=== PATIENT | female | born 1935 | race Caucasian/White ===

== ENCOUNTER 2017-10-11 09:26 | Inpatient (IN) | payer MEDICARE, MEDICAID ==
[~2017-10-11] VITALS: Ht 152.4 cm; Wt 70.8 kg
[~2017-10-11 09:26] MED LIST: AMLO2.5T45 PO; Aspirin PO; FURO-151 PO; LOSA50TA3 PO
[2017-10-11] MEDS ORDERED: ASPIRIN 81MG TABLET PO ONE (11:45)
[2017-10-11] MEDS ORDERED: IPRATROPIUM/ALBUTEROL 0.5-3(2.5)MG/3ML NEB HHN ONE (11:45)
[2017-10-11 12:11] LABS: BASOPHILS % 1.1 % (0.0-2.0); EOSINOPHILS % 2.9 % (0.0-5.0); HEMATOCRIT. 34.2 % (36.0-48.0); HEMOGLOBIN. 11.8 g/dL (12.0-16.0); LYMPHOCYTES % 25.2 % (20.0-50.0); MEAN CORPUSCULAR HEMOGLOBIN 30.6 pg (28.0-32.0); MEAN CORPUSCULAR VOLUME 88.8 fL (81.0-99.0); NEUTROPHILS % 60.8 % (40.0-76.0); PLATELET 199 x1000/uL (130-400); RED BLOOD CELL COUNT 3.85 mill/uL (4.2-5.4); RED CELL DISTRIBUTION WIDTH 14.9 % (11.6-14.6)
[2017-10-11 12:18] LABS: INR 1.1; PROTHROMBIN TIME 11.4 sec (9.4-11.6)
[2017-10-11 12:21] LABS: CHLORIDE 105 mEq/L (98-107)
[2017-10-11 14:24] LABS: CLARITY URINE CLEAR (CLEAR); COLOR URINE YELLOW (YELLOW); KETONES URINE NEGATIVE (NEGATIVE); LEUKOCYTE ESTERASE URINE 2+ (NEGATIVE); NITRITE URINE POSITIVE (NEGATIVE); OCCULT BLOOD URINE NEGATIVE (NEGATIVE); PH URINE 8.5 (4.5-8.0); PROTEIN URINE NEGATIVE (NEGATIVE); SPECIFIC GRAVITY URINE 1.012 (1.005-1.030); UROBILINOGEN URINE 0.2 E.U./dL (0.2-1.0)
[2017-10-11 14:44] LABS: *AMPHETAMINES SCREEN URINE NEGATIVE (NEGATIVE); *BARBITURATES SCREEN URINE NEGATIVE (NEGATIVE); *BENZODIAZEPINES SCREEN URINE NEGATIVE (NEGATIVE); *COCAINE SCREEN URINE NEGATIVE (NEGATIVE); CANNABINOID URINE SCREEN NEGATIVE (NEGATIVE); METHADONE URINE SCREEN NEGATIVE (NEGATIVE); OPIATES URINE SCREEN NEGATIVE (NEGATIVE); PHENCYCLIDINE URINE SCREEN NEGATIVE (NEGATIVE)
[2017-10-11 17:40] VITALS: BP 111/72
[2017-10-11] MEDS ORDERED: ISOS30TA6 PO (17:55)
[2017-10-11] MEDS ORDERED: ALBU90AE IH (17:55)
[2017-10-11] MEDS ORDERED: ATOR20TA65 PO (17:56)
[2017-10-11] MEDS ORDERED: MECL-109 PO (17:57)
[2017-10-11 18:05] VITALS: BP 111/72
[2017-10-11] MEDS ORDERED: LORAZEPAM 2MG/ML CPJ IV PRN (18:45)
[2017-10-11] MEDS ORDERED: GUAIFENESIN 200MG/10ML SUGAR FREE UDC PO PRN (18:45)
[2017-10-11] MEDS ORDERED: CLONIDINE 0.1MG TABLET PO PRN (18:45)
[2017-10-11] MEDS ORDERED: NA PHOS,M-B/NA PHOS,DI-BA ENEMA 118ML PR PRN (18:45)
[2017-10-11] MEDS ORDERED: IPRATROPIUM/ALBUTEROL 0.5-3(2.5)MG/3ML NEB INH PRN (18:45)
[2017-10-11] MEDS ORDERED: MORPHINE SULFATE 4 MG/ML CPJ (NOT FOR IM USE) IV PRN (18:45)
[2017-10-11] MEDS ORDERED: HYDROCODONE/ACETAMINOPHEN 5/325MG TABLET PO PRN (18:45)
[2017-10-11] MEDS ORDERED: DOCUSATE SODIUM 100MG CAPSULE PO PRN (18:45)
[2017-10-11] MEDS ORDERED: MAGNESIUM/ALUMINUM HYDROXIDE/SIMETHICONE 30ML UDC PO PRN (18:45)
[2017-10-11] MEDS ORDERED: ACETAMINOPHEN 325MG TABLET PO PRN (18:45)
[2017-10-11] MEDS ORDERED: DIPHENHYDRAMINE 50MG/ML VIAL IV PRN (18:45)
[2017-10-11] MEDS ORDERED: ONDANSETRON HCL 4MG/2ML VIAL IV PRN (18:45)
[2017-10-11] MEDS: ISOSORBIDE MONONITRATE 30MG TABLET SR 24HR PO SCH (19:50)
[2017-10-11] MEDS: AMLODIPINE 2.5MG TABLET PO SCH (19:50)
[2017-10-11] MEDS: LOSARTAN POTASSIUM 50 MG TABLET PO SCH (19:51)
[2017-10-11] MEDS: ENOXAPARIN 40MG/0.4ML SYR SUBCUT SCH (19:52)
[2017-10-11] MEDS: ATORVASTATIN CALCIUM 20MG TABLET PO SCH (19:55)
[2017-10-11 20:00] VITALS: BP 216/57
[2017-10-11 20:21] LABS: CHLORIDE 104 mEq/L (98-107)
[2017-10-11 22:50] VITALS: BP 192/85
[2017-10-12] VITALS: BP 148/65
[2017-10-12 04:00] VITALS: BP 137/63
[2017-10-12 06:01] LABS: BASOPHILS % 1.1 % (0.0-2.0); EOSINOPHILS % 3.4 % (0.0-5.0); HEMATOCRIT. 33.6 % (36.0-48.0); HEMOGLOBIN. 11.2 g/dL (12.0-16.0); LYMPHOCYTES % 33.7 % (20.0-50.0); MEAN CORPUSCULAR HEMOGLOBIN 29.8 pg (28.0-32.0); MEAN CORPUSCULAR VOLUME 89.4 fL (81.0-99.0); MEAN PLATELET VOLUME 9.6 fl (7.4-10.4); NEUTROPHILS % 50.8 % (40.0-76.0); PLATELET 208 x1000/uL (130-400); RED BLOOD CELL COUNT 3.76 mill/uL (4.2-5.4)
[2017-10-12 08:00] VITALS: BP 147/55
[2017-10-12 08:16] LABS: CHLORIDE 107 mEq/L (98-107)
[2017-10-12 08:31] LABS: HDL CHOLESTEROL 46 mg/dL (40-59); LDL CHOLESTEROL 92 mg/dL (5-100)
[2017-10-12] MEDS: FUROSEMIDE 40MG/4ML VIAL IV SCH (09:17)
[2017-10-12] MEDS: AMLODIPINE 2.5MG TABLET PO SCH (09:17)
[2017-10-12] MEDS: LOSARTAN POTASSIUM 50 MG TABLET PO SCH (09:18)
[2017-10-12] MEDS: ISOSORBIDE MONONITRATE 30MG TABLET SR 24HR PO SCH (09:18)
[2017-10-12] MEDS: ASPIRIN 81MG EC TABLET PO SCH ×2 (09:18→13:39)
[2017-10-12] MEDS: ASPIRIN 81MG TABLET PO SCH (11:30)
[2017-10-12] MEDS ORDERED: REGADENOSON 0.4 MG/5 ML IV SCH (11:30)
[2017-10-12 12:00] VITALS: BP 139/49
[2017-10-12 16:00] VITALS: BP 122/50
[2017-10-12 16:32] LABS: T4 FREE 1.03 ng/dL (0.76-1.46)
[2017-10-12 16:33] LABS: CREATINE KINASE 57 IU/L (26-192); CREATINE KINASE MB FRACTION 0.8 ng/mL (0.5-3.6)
[2017-10-12] MEDS ORDERED: LEVOFLOXACIN 750MG PREMIX 150 ML IV SCH (17:00)
[2017-10-12 20:00] VITALS: BP 143/46
[2017-10-12] MEDS: ATORVASTATIN CALCIUM 20MG TABLET PO SCH (21:11)
[2017-10-12] MEDS: ENOXAPARIN 40MG/0.4ML SYR SUBCUT SCH (21:12)
[2017-10-13] VITALS: BP 164/60
[2017-10-13 00:28] LABS: CREATINE KINASE 59 IU/L (26-192); CREATINE KINASE MB FRACTION 0.9 ng/mL (0.5-3.6)
[2017-10-13 04:00] VITALS: BP 159/61
[2017-10-13 07:28] LABS: CREATINE KINASE 59 IU/L (26-192); CREATINE KINASE MB FRACTION 1.3 ng/mL (0.5-3.6)
[2017-10-13 08:00] VITALS: BP 138/49
[2017-10-13] MEDS: FUROSEMIDE 40MG/4ML VIAL IV SCH (09:00)
[2017-10-13] MEDS ORDERED: REGADENOSON 0.4 MG/5 ML IV ONE (10:51)
[2017-10-13 12:21] VITALS: BP 165/61
[2017-10-13] MEDS: AMLODIPINE 2.5MG TABLET PO SCH ×2 (12:21→12:23)
[2017-10-13] MEDS: ASPIRIN 81MG TABLET PO SCH (12:22)
[2017-10-13] MEDS: LOSARTAN POTASSIUM 50 MG TABLET PO SCH (12:23)
[2017-10-13] MEDS: ISOSORBIDE MONONITRATE 30MG TABLET SR 24HR PO SCH (12:30)
[2017-10-13 13:00] VITALS: BP 127/61
[2017-10-13 15:57] VITALS: BP 129/79
== END 2017-10-13 17:30 | disposition home or self-care (01) | DRG 871 ==
LOC: ER 10:41 → 7WST 16:24 → EDBEDREQ 16:26 → ENRESERV 16:36
PROVIDERS: ADMIT Internal Medicine; ATTEND Internal Medicine
DX: A41.9 Sepsis, unspecified organism (principal); J96.00 Acute respiratory failure, unspecified whether with hypoxia or hypercapnia; I50.43 Acute on chronic combined systolic (congestive) and diastolic (congestive) heart failure; N39.0 Urinary tract infection, site not specified; I11.0 Hypertensive heart disease with heart failure; B96.89 Other specified bacterial agents as the cause of diseases classified elsewhere; Z96.653 Presence of artificial knee joint, bilateral; J45.909 Unspecified asthma, uncomplicated; E78.00 Pure hypercholesterolemia, unspecified; E78.5 Hyperlipidemia, unspecified; F41.9 Anxiety disorder, unspecified; I25.10 Atherosclerotic heart disease of native coronary artery without angina pectoris; Z79.82 Long term (current) use of aspirin; Z79.899 Other long term (current) drug therapy; Z86.718 Personal history of other venous thrombosis and embolism; Z91.14 Patient's other noncompliance with medication regimen
CPT/HCPCS: 36415; 71045; 78452; 80048; 80053; 80061; 80305; 81003; 82550; 82553; 83036; 83605; 83880; 84439; 84443; 84484; 85025; 85379; 85610; 87040; 87077; 87086; 87186; 93005; 93017; 93306; 94640; 99285; A9500; J1200; J1650; J1940; J1956; J2060; J2785; J7050; J7620

== ENCOUNTER 2018-04-22 08:56 | Emergency (ER) | payer MEDICARE, MEDICAID ==
[~2018-04-22] VITALS: Ht 147.3 cm; Wt 66.8 kg
[~2018-04-22 08:56] MED LIST changes: +ALBU90AE IH; +ATOR20TA65 PO; +ISOS30TA6 PO; +MECL-109 PO
[2018-04-22] MEDS ORDERED: MORPHINE SULFATE 4 MG/ML CPJ (NOT FOR IM USE) IV STA (09:35)
[2018-04-22] MEDS ORDERED: ONDANSETRON HCL 4MG/2ML INJ IV STA (09:35)
[2018-04-22] MEDS ORDERED: METOCLOPRAMIDE HCL 10MG/2ML VIAL IV ONE ×2 (09:45→15:15)
[2018-04-22 09:51] LABS: BASOPHILS % 1.4 % (0.0-2.0); EOSINOPHILS % 3.4 % (0.0-5.0); HEMATOCRIT. 37.2 % (36.0-48.0); HEMOGLOBIN. 12.3 g/dL (12.0-16.0); LYMPHOCYTES % 34.6 % (20.0-50.0); MEAN CORPUSCULAR HEMOGLOBIN 29.7 pg (28.0-32.0); MEAN CORPUSCULAR VOLUME 89.8 fL (81.0-99.0); MEAN PLATELET VOLUME 9.5 fl (7.4-10.4); MONOCYTES % 8.4 % (2.0-8.0); NEUTROPHILS % 52.2 % (40.0-76.0); PLATELET 214 x1000/uL (130-400); RED BLOOD CELL COUNT 4.14 mill/uL (4.2-5.4); RED CELL DISTRIBUTION WIDTH 15.5 % (11.6-14.6)
[2018-04-22 09:57] LABS: CHLORIDE 100 mEq/L (98-107)
[2018-04-22 10:42] LABS: CLARITY URINE CLEAR (CLEAR); COLOR URINE YELLOW (YELLOW); KETONES URINE NEGATIVE (NEGATIVE); LEUKOCYTE ESTERASE URINE 1+ (NEGATIVE); NITRITE URINE NEGATIVE (NEGATIVE); OCCULT BLOOD URINE NEGATIVE (NEGATIVE); PH URINE 6.5 (4.5-8.0); PROTEIN URINE NEGATIVE (NEGATIVE); SPECIFIC GRAVITY URINE 1.006 (1.005-1.030); UROBILINOGEN URINE 0.2 E.U./dL (0.2-1.0)
[2018-04-22] MEDS ORDERED: CEFTRIAXONE 2 G PREMIX 50 ML IV ONE (12:00)
[2018-04-22] MEDS ORDERED: SODIUM CHLORIDE 0.9% 500 ML IV ONE (12:00)
[2018-04-22] MEDS ORDERED: ONDANSETRON HCL 4MG/2ML INJ IV ONE (14:30)
[2018-04-22] MEDS ORDERED: DIPHENHYDRAMINE 50MG/ML VIAL IV ONE (17:45)
[2018-04-22 19:10] VITALS: BP 160/69
== END 2018-04-22 19:35 | disposition home or self-care (01) ==
LOC: ER 08:56
DX: N39.0 Urinary tract infection, site not specified (principal); R51 Headache; R42 Dizziness and giddiness; M54.89 Other dorsalgia; R03.0 Elevated blood-pressure reading, without diagnosis of hypertension; N28.9 Disorder of kidney and ureter, unspecified
CPT/HCPCS: 36415; 70450; 71045; 80053; 81003; 82962; 83690; 83880; 84484; 85025; 87077; 87086; 87186; 93005; 96365; 96375; 96376; 99285; J0696; J1200; J2270; J2405; J2765

== ENCOUNTER 2019-04-21 16:17 | Inpatient (IN) | payer MEDICARE, MEDICAID ==
[~2019-04-21] VITALS: Ht 154.9 cm; Wt 81.2 kg
[2019-04-21] MEDS ORDERED: IPRATROPIUM BROMIDE (0.02%) 0.5MG/2.5ML NEB HHN STA (16:23)
[2019-04-21] MEDS ORDERED: ALBUTEROL (0.083%) 2.5MG/3ML NEB HHN STA (16:23)
[2019-04-21] MEDS ORDERED: METHYLPREDNISOLONE SOD SUCC 125 MG/2 ML VIAL IV STA (16:23)
[2019-04-21] MEDS ORDERED: MAGNESIUM 2 G PREMIX 50 ML IV STA (16:23)
[2019-04-21] MEDS ORDERED: NITROGLYCERIN OINT 1GM/INCH UDPKT TD ONE (16:30)
[2019-04-21] MEDS ORDERED: LEVOFLOXACIN 500MG PREMIX 100 ML IV ONE (16:30)
[2019-04-21 16:52] LABS: BASOPHILS % 0.6 % (0.0-2.0); EOSINOPHILS % 1.4 % (0.0-5.0); HEMATOCRIT. 32.5 % (36.0-48.0); LYMPHOCYTES % 15.1 % (20.0-50.0); MEAN CORPUSCULAR HEMOGLOBIN 31.1 pg (28.0-32.0); MEAN CORPUSCULAR VOLUME 91.7 fL (81.0-99.0); MEAN PLATELET VOLUME 8.7 fl (7.4-10.4); MONOCYTES % 5.8 % (2.0-8.0); NEUTROPHILS % 77.1 % (40.0-76.0); PLATELET 193 x1000/uL (130-400); RED BLOOD CELL COUNT 3.54 mill/uL (4.2-5.4); RED CELL DISTRIBUTION WIDTH 14.2 % (11.6-14.6)
[2019-04-21 16:56] LABS: CHLORIDE 102 mEq/L (98-107); INR 1.1; PROTHROMBIN TIME 11.5 sec (9.6-11.0)
[2019-04-21 18:05] LABS: BG BASE EXCESS -6.4 mmol/L (-2.0-2.0); BG BILEVEL POS AIRWAY PRESSURE 15/5; BG CARBOXYHEMOGLOBIN 0.2 % (0.5-1.5); BG DEOXYHEMOGLOBIN 1.7 % (0.0-5.0); BG FRACTION INSPIRED OXYGEN 40; BG HCO3 ACT 19.2 mmol/L (22.0-26.0); BG OXYGEN SATURATION 98.3 % (92.0-98.5); BG OXYHEMOGLOBIN 98.1 % (94.0-97.0); BG PCO2 38.3 mmHg (35.0-45.0); BG PH 7.317 (7.350-7.450); BG PO2 135.4 mmHg (75.0-100.0); BG SAMPLE SITE RIGHT RADIAL; BG TOTAL HEMOGLOBIN 12.8 g/dL (12.0-18.0); BG VENT MODE MASK - BIPAP; BG VENT RATE 16 set
[2019-04-21] MEDS ORDERED: MAGNESIUM/ALUMINUM HYDROXIDE/SIMETHICONE 30ML UDC PO PRN (21:30)
[2019-04-21] MEDS ORDERED: ACETAMINOPHEN 325MG TABLET PO PRN (21:30)
[2019-04-21] MEDS ORDERED: HYDRALAZINE 20MG/ML VIAL IV PRN (21:30)
[2019-04-21] MEDS ORDERED: IPRATROPIUM/ALBUTEROL 0.5-3(2.5)MG/3ML NEB HHN PRN (21:30)
[2019-04-21] MEDS ORDERED: DIPHENHYDRAMINE 50MG/ML VIAL IV PRN (21:30)
[2019-04-21] MEDS ORDERED: LEVOFLOXACIN 500MG PREMIX 100 ML IV SCH (21:30)
[2019-04-21] MEDS ORDERED: LORAZEPAM 0.5MG TABLET PO PRN (21:30)
[2019-04-21] MEDS ORDERED: ONDANSETRON HCL 4MG/2ML INJ IV PRN (21:30)
[2019-04-21] MEDS ORDERED: CLONIDINE 0.2MG TABLET PO PRN (21:48)
[2019-04-21 22:08] LABS: CLARITY URINE CLEAR (CLEAR); COLOR URINE YELLOW (YELLOW); KETONES URINE NEGATIVE (NEGATIVE); LEUKOCYTE ESTERASE URINE NEGATIVE (NEGATIVE); NITRITE URINE NEGATIVE (NEGATIVE); OCCULT BLOOD URINE NEGATIVE (NEGATIVE); PROTEIN URINE NEGATIVE (NEGATIVE); SPECIFIC GRAVITY URINE 1.011 (1.005-1.030); UROBILINOGEN URINE 0.2 E.U./dL (0.2-1.0)
[2019-04-22] VITALS (10 sets, daily range): BP systolic 120–154; BP diastolic 52–94
[2019-04-22] MEDS ORDERED: NITROGLYCERIN OINT 1GM/INCH UDPKT TD SCH (06:00)
[2019-04-22] MEDS ORDERED: IPRATROPIUM/ALBUTEROL 0.5-3(2.5)MG/3ML NEB HHN SCH (06:00)
[2019-04-22] MEDS ORDERED: SODIUM CHLORIDE 0.9% INJ 3ML FLUSH IVF SCH (06:00)
[2019-04-22] MEDS ORDERED: LEVOFLOXACIN 250MG PREMIX 50 ML IV SCH (06:00)
[2019-04-22] MEDS ORDERED: HYDRALAZINE 20MG/ML VIAL IV PRN (07:00)
[2019-04-22] MEDS ORDERED: DIPHENHYDRAMINE 50MG/ML VIAL IV PRN (07:00)
[2019-04-22] MEDS ORDERED: MAGNESIUM/ALUMINUM HYDROXIDE/SIMETHICONE 30ML UDC PO PRN (07:00)
[2019-04-22] MEDS ORDERED: LORAZEPAM 0.5MG TABLET PO PRN (07:00)
[2019-04-22] MEDS: FUROSEMIDE 40MG/4ML VIAL IVP SCH (08:48)
[2019-04-22] MEDS: FAMOTIDINE 20MG/2ML VIAL IV SCH (08:48)
[2019-04-22] MEDS: ENOXAPARIN 30MG/0.3ML SYR SUBCUT SCH (08:49)
[2019-04-22] MEDS ORDERED: ENOXAPARIN 30MG/0.3ML SYR SUBCUT SCH (09:00)
[2019-04-22] MEDS ORDERED: FAMOTIDINE 20MG/2ML VIAL IV SCH (09:00)
[2019-04-22] MEDS ORDERED: ENOXAPARIN 40MG/0.4ML SYR SUBCUT SCH (09:00)
[2019-04-22] MEDS ORDERED: FUROSEMIDE 40MG/4ML VIAL IVP SCH (09:00)
[2019-04-22] MEDS: IPRATROPIUM/ALBUTEROL 0.5-3(2.5)MG/3ML NEB HHN SCH ×3 (09:35→21:10)
[2019-04-22 09:36] LABS: HEMATOCRIT 31.6 % (36.0-48.0); HEMOGLOBIN 10.7 g/dL (12.0-16.0); MEAN CORPUSCULAR VOLUME 91.9 fL (81.0-99.0); PLATELET 180 x1000/uL (130-400); RED BLOOD CELL COUNT 3.44 mill/uL (4.2-5.4); RED CELL DISTRIBUTION WIDTH 14.4 % (11.6-14.6)
[2019-04-22] MEDS ORDERED: PNEUMOCOCCAL 23-VAL P-SAC VAC 0.5 ML IM ONE (13:45)
[2019-04-22] MEDS: NITROGLYCERIN OINT 1GM/INCH UDPKT TD SCH ×2 (13:51→22:42)
[2019-04-22] MEDS: SODIUM CHLORIDE 0.9% INJ 3ML FLUSH IVF SCH ×2 (13:52→22:41)
[2019-04-22 16:08] LABS: T4 FREE 1.02 ng/dL (0.76-1.46)
[2019-04-22 16:11] LABS: CREATINE KINASE MB FRACTION 3.7 ng/mL (0.5-3.6)
[2019-04-22] MEDS: LEVOFLOXACIN 250MG PREMIX 50 ML IV SCH (17:45)
[2019-04-22] MEDS: CLONIDINE 0.2MG TABLET PO PRN (23:40)
[2019-04-23] VITALS (12 sets, daily range): BP systolic 115–169; BP diastolic 40–72
[2019-04-23 00:26] LABS: CREATINE KINASE MB FRACTION 4.7 ng/mL (0.5-3.6)
[2019-04-23] MEDS: IPRATROPIUM/ALBUTEROL 0.5-3(2.5)MG/3ML NEB HHN SCH ×4 (01:04→22:10)
[2019-04-23] MEDS: SODIUM CHLORIDE 0.9% INJ 3ML FLUSH IVF SCH ×3 (05:46→21:41)
[2019-04-23] MEDS: NITROGLYCERIN OINT 1GM/INCH UDPKT TD SCH ×3 (05:47→21:42)
[2019-04-23] MEDS: ONDANSETRON HCL 4MG/2ML INJ IV PRN (05:53)
[2019-04-23 07:15] LABS: CREATINE KINASE MB FRACTION 4.3 ng/mL (0.5-3.6)
[2019-04-23] MEDS: ENOXAPARIN 30MG/0.3ML SYR SUBCUT SCH (10:19)
[2019-04-23] MEDS: FUROSEMIDE 40MG/4ML VIAL IVP SCH (10:19)
[2019-04-23] MEDS: FAMOTIDINE 20MG/2ML VIAL IV SCH (10:19)
[2019-04-23] MEDS ORDERED: AMLODIPINE 5MG TABLET PO SCH (11:00)
[2019-04-23] MEDS: LEVOFLOXACIN 250MG PREMIX 50 ML IV SCH (17:15)
[2019-04-23] MEDS: ACETAMINOPHEN 325MG TABLET PO PRN (23:37)
[2019-04-24] VITALS (13 sets, daily range): BP systolic 110–163; BP diastolic 52–63
[2019-04-24] MEDS: IPRATROPIUM/ALBUTEROL 0.5-3(2.5)MG/3ML NEB HHN SCH ×4 (03:24→20:07)
[2019-04-24] MEDS: NITROGLYCERIN OINT 1GM/INCH UDPKT TD SCH (06:27)
[2019-04-24] MEDS: SODIUM CHLORIDE 0.9% INJ 3ML FLUSH IVF SCH ×3 (06:27→21:15)
[2019-04-24] MEDS: AMLODIPINE 5MG TABLET PO SCH (08:20)
[2019-04-24] MEDS: FUROSEMIDE 40MG/4ML VIAL IVP SCH (08:20)
[2019-04-24] MEDS: FAMOTIDINE 20MG/2ML VIAL IV SCH (08:20)
[2019-04-24] MEDS: ENOXAPARIN 30MG/0.3ML SYR SUBCUT SCH (08:21)
[2019-04-24] MEDS: ACETAMINOPHEN 325MG TABLET PO PRN (09:56)
[2019-04-24] MEDS: ONDANSETRON HCL 4MG/2ML INJ IV PRN ×2 (12:41→18:29)
[2019-04-24] MEDS ORDERED: LEVOFLOXACIN 250MG TABLET PO SCH (17:00)
[2019-04-24] MEDS: CLONIDINE 0.2MG TABLET PO PRN (18:12)
[2019-04-25] VITALS (11 sets, daily range): BP systolic 118–169; BP diastolic 29–75
[2019-04-25] MEDS: IPRATROPIUM/ALBUTEROL 0.5-3(2.5)MG/3ML NEB HHN SCH ×2 (02:42→20:07)
[2019-04-25] MEDS: SODIUM CHLORIDE 0.9% INJ 3ML FLUSH IVF SCH ×3 (05:39→22:42)
[2019-04-25 07:01] LABS: BASOPHILS % 0.5 % (0.0-2.0); EOSINOPHILS % 3.8 % (0.0-5.0); HEMATOCRIT. 27.4 % (36.0-48.0); HEMOGLOBIN. 9.5 g/dL (12.0-16.0); LYMPHOCYTES % 20.6 % (20.0-50.0); MEAN CORPUSCULAR HEMOGLOBIN 31.4 pg (28.0-32.0); MEAN PLATELET VOLUME 8.9 fl (7.4-10.4); MONOCYTES % 12.9 % (2.0-8.0); NEUTROPHILS % 62.2 % (40.0-76.0); PLATELET 175 x1000/uL (130-400); RED BLOOD CELL COUNT 3.02 mill/uL (4.2-5.4); RED CELL DISTRIBUTION WIDTH 14.4 % (11.6-14.6)
[2019-04-25] MEDS: ENOXAPARIN 30MG/0.3ML SYR SUBCUT SCH (08:29)
[2019-04-25] MEDS: FUROSEMIDE 40MG/4ML VIAL IVP SCH (08:29)
[2019-04-25] MEDS: FAMOTIDINE 20MG/2ML VIAL IV SCH (08:29)
[2019-04-25] MEDS: IPRATROPIUM/ALBUTEROL 0.5-3(2.5)MG/3ML NEB HHN PRN ×2 (08:30→14:58)
[2019-04-25] MEDS: AMLODIPINE 5MG TABLET PO SCH (08:31)
[2019-04-25] MEDS ORDERED: BISACODYL 5MG TABLET PO PRN (15:15)
[2019-04-25] MEDS ORDERED: DOCUSATE SODIUM SUGAR FREE 100MG/10ML UDC NG SCH (15:15)
[2019-04-25] MEDS ORDERED: DOCUSATE SODIUM SUGAR FREE 100MG/10ML UDC PO SCH (16:35)
[2019-04-25] MEDS: ACETAMINOPHEN 325MG TABLET PO PRN (16:44)
[2019-04-26] VITALS (9 sets, daily range): BP systolic 140–167; BP diastolic 49–64
[2019-04-26] MEDS: IPRATROPIUM/ALBUTEROL 0.5-3(2.5)MG/3ML NEB HHN SCH ×3 (01:52→14:16)
[2019-04-26] MEDS: SODIUM CHLORIDE 0.9% INJ 3ML FLUSH IVF SCH ×2 (06:00→14:00)
[2019-04-26] MEDS: ENOXAPARIN 30MG/0.3ML SYR SUBCUT SCH (09:05)
[2019-04-26] MEDS: FAMOTIDINE 20MG/2ML VIAL IV SCH (09:05)
[2019-04-26] MEDS: AMLODIPINE 5MG TABLET PO SCH (09:05)
[2019-04-26] MEDS: FUROSEMIDE 40MG/4ML VIAL IVP SCH (09:05)
[2019-04-26] MEDS ORDERED: INFLUENZA VIRUS VACCINE(AFLURIA) 0.5ML SYR IM ONE (13:00)
[2019-04-26] MEDS ORDERED: AMLO2.5T45 PO (18:45)
[2019-04-26] MEDS ORDERED: AMLO5TAB88 MT (18:47)
[2019-04-26] MEDS ORDERED: TUSSL MT (18:50)
[2019-04-27] MEDS ORDERED: ENOXAPARIN 40MG/0.4ML SYR SUBCUT SCH (09:00)
== END 2019-04-26 19:36 | disposition home health service (06) | DRG 291 ==
LOC: ER 16:17 → 3WST 20:06 → EDBEDREQTM 20:17 → EDBEDREQ 20:17 → ENRESERV 04-22 03:47 → UNDODISIN 04-22 05:10
PROVIDERS: ADMIT Internal Medicine; ATTEND Internal Medicine
PROC: 5A09357 Assistance with Respiratory Ventilation, Less than 24 Consecutive Hours, Continuous Positive Airway Pressure (ICD-10-PCS; principal; 2019-04-21)
DX: I13.0 Hypertensive heart and chronic kidney disease with heart failure and stage 1 through stage 4 chronic kidney disease, or unspecified chronic kidney disease (principal); J96.21 Acute and chronic respiratory failure with hypoxia; I50.43 Acute on chronic combined systolic (congestive) and diastolic (congestive) heart failure; E87.1 Hypo-osmolality and hyponatremia; N18.4 Chronic kidney disease, stage 4 (severe); D63.8 Anemia in other chronic diseases classified elsewhere; E78.5 Hyperlipidemia, unspecified; F41.9 Anxiety disorder, unspecified; J44.9 Chronic obstructive pulmonary disease, unspecified; J45.909 Unspecified asthma, uncomplicated; I07.1 Rheumatic tricuspid insufficiency; I27.20 Pulmonary hypertension, unspecified; K21.9 Gastro-esophageal reflux disease without esophagitis; K59.00 Constipation, unspecified; Z96.653 Presence of artificial knee joint, bilateral; R00.1 Bradycardia, unspecified; Z79.51 Long term (current) use of inhaled steroids; Z79.899 Other long term (current) drug therapy
CPT/HCPCS: 36415; 36600; 71045; 78582; 80048; 80061; 81003; 82375; 82550; 82553; 82805; 83036; 83605; 83880; 84145; 84439; 84443; 84484; 85027; 85379; 90686; 90732; 93005; 93306; 93970; 94640; 94660; 96365; 97162; 97166; 99291; A9558; C1893; J1200; J1650; J1940; J1956; J2405; J2930; J3475; J3490; J7611; J7620

== ENCOUNTER 2020-12-09 19:02 | Inpatient (IN) | payer MEDICARE, MEDICAID ==
[~2020-12-09] VITALS: Ht 162.6 cm; Wt 87.1 kg
[~2020-12-09 19:02] MED LIST changes: -AMLO2.5T45 PO; +AMLO5TAB88 MT; +ETOMIDATE 2MG/ML 10ML VIAL IV ONE; -ISOS30TA6 PO; +ISOS30TA91 PO; -MECL-109 PO; +MECL-159 PO; +SODIUM CHLORIDE 0.9% 10ML VIAL ONE; +SUCCINYLCHOLINE CHLORIDE 200MG/10ML IV ONE; +TUSSL MT; +VECURONIUM BROMIDE 10 MG/VIAL IV ONE
[2020-12-09 19:38] LABS: CHLORIDE 95 mEq/L (98-107)
[2020-12-09 19:46] LABS: HEMATOCRIT. 24.6 % (36.0-48.0); HEMOGLOBIN. 8.4 g/dL (12.0-16.0); MEAN CORPUSCULAR HEMOGLOBIN 31.1 pg (28.0-32.0); MEAN CORPUSCULAR VOLUME 91.3 fL (81.0-99.0); MEAN PLATELET VOLUME 8.7 fl (7.4-10.4); PLATELET 216 x1000/uL (130-400); RED BLOOD CELL COUNT 2.69 mill/uL (4.2-5.4); RED CELL DISTRIBUTION WIDTH 14.2 % (11.6-14.6)
[2020-12-09] MEDS ORDERED: INSULIN REGULAR (HUMULIN R) 300UNITS/3ML VIAL IV ONE (20:30)
[2020-12-09] MEDS ORDERED: DEXTROSE 50% WATER 50ML SYRINGE IV ONE (20:30)
[2020-12-09 20:40] LABS: BG BASE EXCESS -2.1 mmol/L (-2.0-2.0); BG CARBOXYHEMOGLOBIN 0.4 % (0.5-1.5); BG DEOXYHEMOGLOBIN 2.7 % (0.0-5.0); BG FRACTION INSPIRED OXYGEN 60; BG HCO3 ACT 24.8 mmol/L (22.0-26.0); BG METHEMOGLOBIN 0.3 % (0.0-1.5); BG OXYGEN SATURATION 97.3 % (92.0-98.5); BG OXYHEMOGLOBIN 96.6 % (94.0-97.0); BG PCO2 53.6 mmHg (35.0-45.0); BG PH 7.283 (7.350-7.450); BG PO2 106.7 mmHg (75.0-100.0); BG TOTAL HEMOGLOBIN 9.2 g/dL (12.0-18.0); BG VENT MODE MASK - BIPAP
[2020-12-09 20:49] LABS: PLATELET ESTIMATE NORMAL
[2020-12-09] MEDS ORDERED: ALBUTEROL (0.083%) 2.5MG/3ML NEB HHN ONE (21:00)
[2020-12-09] MEDS ORDERED: VECURONIUM BROMIDE 10 MG/VIAL IV ONE (21:30)
[2020-12-09] MEDS ORDERED: ETOMIDATE 2MG/ML 10ML VIAL IV ONE (21:30)
[2020-12-09] MEDS ORDERED: MIDAZOLAM HCL 2 MG/2 ML VIAL IV ONE (21:30)
[2020-12-09] MEDS ORDERED: MIDAZOLAM HCL 100 MG in DEXT 5% WATER 80 ML IV ONE (21:30)
[2020-12-09] MEDS ORDERED: MIDAZOLAM HCL 100 MG in DEXT 5% WATER 80 ML IV PRN (21:45)
[2020-12-09] MEDS ORDERED: NOREPINEPHRINE 8 MG in DEXT 5% WATER 242 ML IV PRN (22:00)
[2020-12-09] MEDS ORDERED: CALCIUM GLUCONATE 1GM PREMIX 50 ML IV ONE ×2 (22:00→23:00)
[2020-12-09] MEDS ORDERED: ATROPINE SULFATE 1MG/10ML SYR IV ONE ×2 (22:15→23:00)
[2020-12-09] MEDS ORDERED: IPRATROPIUM/ALBUTEROL 0.5-3(2.5)MG/3ML NEB HHN PRN (22:45)
[2020-12-09] MEDS ORDERED: CLONIDINE 0.1MG TABLET PO PRN (22:45)
[2020-12-09] MEDS ORDERED: DOCUSATE SODIUM 100MG CAPSULE PO PRN (22:45)
[2020-12-09] MEDS ORDERED: LORAZEPAM 2MG/ML CPJ IV PRN (22:45)
[2020-12-09] MEDS ORDERED: PIPERACILLIN/TAZ 3.375G PREMIX 50 ML IV SCH (22:45)
[2020-12-09] MEDS ORDERED: HYDROCODONE/ACETAMINOPHEN 5/325MG TABLET PO PRN (22:45)
[2020-12-09] MEDS ORDERED: HYDRALAZINE 20MG/ML VIAL IV PRN (22:45)
[2020-12-09] MEDS ORDERED: ONDANSETRON HCL 4MG/2ML INJ IV PRN (22:45)
[2020-12-09] MEDS ORDERED: GUAIFENESIN 200MG/10ML SUGAR FREE UDC PO PRN (22:45)
[2020-12-09] MEDS ORDERED: DIPHENHYDRAMINE 50MG/ML VIAL IV PRN (22:45)
[2020-12-09] MEDS ORDERED: MAGNESIUM/ALUMINUM HYDROXIDE/SIMETHICONE 30ML UDC PO PRN (22:45)
[2020-12-09] MEDS ORDERED: ACETAMINOPHEN 325MG TABLET PO PRN (22:45)
[2020-12-09] MEDS ORDERED: MORPHINE SULFATE 2 MG/ML CPJ (NOT FOR IM USE) IV PRN (22:45)
[2020-12-09] MEDS: MIDAZOLAM HCL 100 MG in SODIUM CHLORIDE 0.9% 100 ML IV PRN (22:55)
[2020-12-09] MEDS ORDERED: ENOXAPARIN 40MG/0.4ML SYR SUBCUT SCH (23:00)
[2020-12-09 23:03] LABS: CLARITY URINE TURBID (CLEAR); COLOR URINE DARK YELLOW (YELLOW); KETONES URINE TRACE (NEGATIVE); LEUKOCYTE ESTERASE URINE NEGATIVE (NEGATIVE); NITRITE URINE NEGATIVE (NEGATIVE); OCCULT BLOOD URINE TRACE (NEGATIVE); PROTEIN URINE 1+ (NEGATIVE); SPECIFIC GRAVITY URINE 1.024 (1.005-1.030); UROBILINOGEN URINE 0.2 E.U./dL (0.2-1.0)
[2020-12-09] MEDS ORDERED: DOPAMINE 400MG/250ML PREMIX 250 ML IV STA (23:22)
[2020-12-09 23:31] LABS: BG BASE EXCESS -3.5 mmol/L (-2.0-2.0); BG CARBOXYHEMOGLOBIN 0.1 % (0.5-1.5); BG DEOXYHEMOGLOBIN 19.6 % (0.0-5.0); BG FRACTION INSPIRED OXYGEN 85; BG HCO3 ACT 22.5 mmol/L (22.0-26.0); BG METHEMOGLOBIN 0.1 % (0.0-1.5); BG OXYGEN SATURATION 80.4 % (92.0-98.5); BG OXYHEMOGLOBIN 80.2 % (94.0-97.0); BG PCO2 44.6 mmHg (35.0-45.0); BG SAMPLE SITE RIGHT RADIAL; BG TOTAL HEMOGLOBIN 8.6 g/dL (12.0-18.0); BG VENT MODE VENT - AC
[2020-12-09] MEDS ORDERED: NOREPINEPHRINE 8MG/250ML PMX 250 ML IV SCH (23:45)
[2020-12-09] MEDS ORDERED: PHENYLEPHRINE 100 MG in DEXT 5% WATER 240 ML IV PRN (23:45)
[2020-12-10] VITALS (19 sets, daily range): BP systolic 73–186; BP diastolic 27–94
[2020-12-10] MEDS: DEXT 5%/0.45% NACL 1000ML 1,000 ML IV SCH ×2 (02:07→22:50)
[2020-12-10] MEDS: NOREPINEPHRINE 8MG/250ML PMX 250ML IV PRN ×2 (03:15→06:06)
[2020-12-10] MEDS: PIPERACILLIN/TAZOBACTAM 2.25 G in DEXTROSE 5% WATER 50 ML IV SCH ×2 (03:16→08:00)
[2020-12-10] MEDS: SODIUM CHLORIDE 0.9% INJ 3ML FLUSH IVF SCH ×3 (06:03→21:15)
[2020-12-10 06:17] LABS: BG BASE EXCESS -7.2 mmol/L (-2.0-2.0); BG CARBOXYHEMOGLOBIN 0.3 % (0.5-1.5); BG DEOXYHEMOGLOBIN 4.9 % (0.0-5.0); BG FRACTION INSPIRED OXYGEN 100; BG HCO3 ACT 19.7 mmol/L (22.0-26.0); BG METHEMOGLOBIN 0.1 % (0.0-1.5); BG OXYGEN SATURATION 95.1 % (92.0-98.5); BG OXYHEMOGLOBIN 94.7 % (94.0-97.0); BG PCO2 46.1 mmHg (35.0-45.0); BG PH 7.249 (7.350-7.450); BG PO2 85.2 mmHg (75.0-100.0); BG SAMPLE SITE RIGHT RADIAL; BG TOTAL HEMOGLOBIN 9.1 g/dL (12.0-18.0); BG VENT MODE VENT - AC
[2020-12-10] MEDS: PANTOPRAZOLE SODIUM 40 MG/VIAL IV SCH (17:07)
[2020-12-10 17:27] LABS: HEMATOCRIT. 28.8 % (36.0-48.0); HEMOGLOBIN. 9.6 g/dL (12.0-16.0); MEAN CORPUSCULAR HEMOGLOBIN 30.1 pg (28.0-32.0); MEAN CORPUSCULAR VOLUME 90.5 fL (81.0-99.0); MEAN PLATELET VOLUME 8.9 fl (7.4-10.4); PLATELET 251 x1000/uL (130-400); RED BLOOD CELL COUNT 3.18 mill/uL (4.2-5.4); RED CELL DISTRIBUTION WIDTH 13.9 % (11.6-14.6)
[2020-12-10 17:43] LABS: CHLORIDE 90 mEq/L (98-107); D-DIMER 1.78 mg/L FEU (<0.50); INR 1.1; PROTHROMBIN TIME 11.7 sec (9.6-11.0)
[2020-12-10 17:52] LABS: T4 FREE 1.26 ng/dL (0.76-1.46)
[2020-12-10] MEDS ORDERED: ENOXAPARIN 100MG/ML SYR SUBCUT SCH ×3 (18:00→21:00)
[2020-12-10] MEDS: IPRATROPIUM/ALBUTEROL 0.5-3(2.5)MG/3ML NEB HHN SCH (20:42)
[2020-12-10] MEDS ORDERED: WATER IV PRN (20:45)
[2020-12-10] MEDS ORDERED: CALCIUM CHLORIDE 1GM/10ML SYR IV NR (20:45)
[2020-12-10] MEDS ORDERED: DEXT 5% IV PRN (20:45)
[2020-12-10] MEDS ORDERED: ISOPROTERENOL HCL IV PRN (20:45)
[2020-12-10] MEDS ORDERED: ATROPINE SULFATE 1MG/10ML SYR IV NR (20:45)
[2020-12-10] MEDS ORDERED: ENOXAPARIN 30MG/0.3ML SYR SUBCUT SCH (21:00)
[2020-12-10] MEDS ORDERED: SODIUM CHLORIDE 0.9% 500 ML IV ONE (21:00)
[2020-12-10] MEDS: MIDAZOLAM HCL 100 MG in SODIUM CHLORIDE 0.9% 100 ML IV PRN (21:11)
[2020-12-10] MEDS: DOPAMINE 400MG/250ML PREMIX 250 ML IV PRN ×2 (21:13→22:46)
[2020-12-10] MEDS ORDERED: DEXTROSE 50% WATER 50ML SYRINGE IV NR (21:15)
[2020-12-10] MEDS ORDERED: SODIUM BICARBONATE 8.4% 1 MEQ/ML 50ML SYR IV NR (21:15)
[2020-12-10] MEDS ORDERED: INSULIN REGULAR (HUMULIN R) UD 100 UNITS/ML SYR IV NR (21:15)
[2020-12-10] MEDS ORDERED: SODIUM POLYSTYRENE SULFONATE 15 G/60 ML BOT PO NR (21:15)
[2020-12-10 23:23] LABS: PLATELET ESTIMATE NORMAL
[2020-12-11] VITALS (65 sets, daily range): BP systolic 77–169; BP diastolic 27–81
[2020-12-11] MEDS: NOREPINEPHRINE 8 MG in DEXTROSE 5% WATER 250 ML IV PRN ×2 (00:02→12:07)
[2020-12-11] MEDS: IPRATROPIUM/ALBUTEROL 0.5-3(2.5)MG/3ML NEB HHN SCH ×3 (00:37→13:20)
[2020-12-11] MEDS ORDERED: MIDAZOLAM 100MG/100ML PMX 100 ML IV PRN (01:00)
[2020-12-11] MEDS ORDERED: FENTANYL CITRATE/PF 2,500 MCG in SODIUM CHLORIDE 0.9% 200 ML IV PRN (01:00)
[2020-12-11] MEDS ORDERED: MIDAZOLAM HCL 100 MG in SODIUM CHLORIDE 0.9% 100 ML IV PRN (01:15)
[2020-12-11] MEDS: PIPERACILLIN/TAZOBACTAM 2.25 G in DEXTROSE 5% WATER 50 ML IV SCH ×3 (02:15→10:04)
[2020-12-11] MEDS: DOPAMINE 400MG/250ML PREMIX 250 ML IV PRN ×2 (03:48→14:42)
[2020-12-11 06:10] LABS: CREATINE KINASE MB FRACTION 20.1 ng/mL (0.5-3.6)
[2020-12-11] MEDS: SODIUM CHLORIDE 0.9% INJ 3ML FLUSH IVF SCH ×2 (06:47→12:07)
[2020-12-11 06:55] LABS: HEMATOCRIT. 30.7 % (36.0-48.0); HEMOGLOBIN. 9.9 g/dL (12.0-16.0); MEAN CORPUSCULAR VOLUME 93.4 fL (81.0-99.0); MEAN PLATELET VOLUME 9.2 fl (7.4-10.4); PLATELET 212 x1000/uL (130-400); RED BLOOD CELL COUNT 3.29 mill/uL (4.2-5.4); RED CELL DISTRIBUTION WIDTH 14.2 % (11.6-14.6)
[2020-12-11] MEDS ORDERED: ATROPINE SULFATE 1MG/ML VIAL IV PRN (09:15)
[2020-12-11] MEDS ORDERED: DEXTROSE 50% WATER 50ML SYRINGE IV NR (09:30)
[2020-12-11] MEDS ORDERED: INSULIN REGULAR (HUMULIN R) 300UNITS/3ML VIAL IV NR (09:30)
[2020-12-11] MEDS ORDERED: DEXT 5%/0.9% NACL 1,000 ML IV SCH (09:30)
[2020-12-11] MEDS: PANTOPRAZOLE SODIUM 40 MG/VIAL IV SCH (10:04)
[2020-12-11 10:07] LABS: BG BASE EXCESS -3.6 mmol/L (-2.0-2.0); BG CARBOXYHEMOGLOBIN 0.3 % (0.5-1.5); BG DEOXYHEMOGLOBIN 3.1 % (0.0-5.0); BG FRACTION INSPIRED OXYGEN 90; BG HCO3 ACT 20.7 mmol/L (22.0-26.0); BG METHEMOGLOBIN 0.5 % (0.0-1.5); BG OXYGEN SATURATION 96.9 % (92.0-98.5); BG OXYHEMOGLOBIN 96.1 % (94.0-97.0); BG PCO2 34.6 mmHg (35.0-45.0); BG PH 7.395 (7.350-7.450); BG PO2 93.1 mmHg (75.0-100.0); BG SAMPLE SITE RIGHT RADIAL; BG TOTAL HEMOGLOBIN 10.5 g/dL (12.0-18.0); BG VENT MODE VENT - AC
[2020-12-11] MEDS ORDERED: SODIUM POLYSTYRENE SULFONATE 15 G/60 ML BOT PO NR (10:30)
[2020-12-11] MEDS ORDERED: CALCIUM GLUCONATE 100MG/ML 10ML VIAL IV NR (10:30)
[2020-12-11 13:59] LABS: PLATELET ESTIMATE NORMAL
[2020-12-11] MEDS ORDERED: MORPHINE SULFATE 250 MG in DEXT 5% WATER 240 ML IV PRN (15:00)
== END 2020-12-11 18:05 | DRG 208 ==
LOC: ER 19:02 → EDBEDREQ 19:20 → MICUSO 22:01 → EDBEDREQ 22:04 → EDBEDREQSVC 22:04 → EDBEDREQTM 22:04 → CVICU 12-10 18:18
PROVIDERS: ADMIT Internal Medicine; ATTEND Internal Medicine
PROC: 5A1945Z Respiratory Ventilation, 24-96 Consecutive Hours (ICD-10-PCS; principal; 2020-12-09)
PROC: 0BH17EZ Insertion of Endotracheal Airway into Trachea, Via Natural or Artificial Opening (ICD-10-PCS; 2020-12-09)
PROC: 06HM33Z Insertion of Infusion Device into Right Femoral Vein, Percutaneous Approach (ICD-10-PCS; 2020-12-09)
PROC: B54BZZA Ultrasonography of Right Lower Extremity Veins, Guidance (ICD-10-PCS; 2020-12-09)
PROC: 5A09357 Assistance with Respiratory Ventilation, Less than 24 Consecutive Hours, Continuous Positive Airway Pressure (ICD-10-PCS; 2020-12-09)
DX: J96.00 Acute respiratory failure, unspecified whether with hypoxia or hypercapnia (principal); N17.0 Acute kidney failure with tubular necrosis; I50.33 Acute on chronic diastolic (congestive) heart failure; I13.0 Hypertensive heart and chronic kidney disease with heart failure and stage 1 through stage 4 chronic kidney disease, or unspecified chronic kidney disease; E87.1 Hypo-osmolality and hyponatremia; N39.0 Urinary tract infection, site not specified; R57.9 Shock, unspecified; E87.2 Acidosis; I82.412 Acute embolism and thrombosis of left femoral vein; I82.432 Acute embolism and thrombosis of left popliteal vein; E66.9 Obesity, unspecified; E78.00 Pure hypercholesterolemia, unspecified; J44.9 Chronic obstructive pulmonary disease, unspecified; Z51.5 Encounter for palliative care; Z66 Do not resuscitate; N18.9 Chronic kidney disease, unspecified; Z60.2 Problems related to living alone; E78.5 Hyperlipidemia, unspecified; E11.22 Type 2 diabetes mellitus with diabetic chronic kidney disease; D64.9 Anemia, unspecified; E87.5 Hyperkalemia; Z79.899 Other long term (current) drug therapy; Z79.82 Long term (current) use of aspirin; Z68.33 Body mass index [BMI] 33.0-33.9, adult
CPT/HCPCS: 36415; 36600; 71045; 78580; 80048; 80053; 80061; 81003; 82375; 82550; 82553; 82805; 82962; 83036; 83880; 84439; 84443; 84484; 85025; 85379; 87070; 93005; 93306; 93970; 94002; 94640; 94660; 99291; C9113; J0330; J0461; J0610; J1265; J1650; J1815; J2250; J2274; J2543; J3490; J7040; J7042; J7060